=== PATIENT | female | born 1955 | race Two or more races ===

== ENCOUNTER 2020-02-22 07:50 | Outpatient (CLI) | payer OTHER | END 2020-02-22 07:56 | disposition home or self-care (01) | LOC: RX STUDY 07:50 | PROVIDERS: ATTEND Otolaryngology Otolaryngology/Facial Plastic Surgery | DX: J32.0 Chronic maxillary sinusitis (principal); R13.19 Other dysphagia ==

== ENCOUNTER → 2022-04-29 13:08 | Outpatient (CLI) | payer OTHER | END | disposition home or self-care (01) | LOC: LAB 13:08 | PROVIDERS: ATTEND Radiology Diagnostic Radiology | DX: R09.01 Asphyxia (principal) ==

== ENCOUNTER 2022-05-02 07:44 | Outpatient (CLI) | payer OTHER | END 2022-05-02 08:15 | disposition home or self-care (01) | LOC: TOM 07:44 | PROVIDERS: ATTEND Specialist | DX: R09.02 Hypoxemia (principal); J44.9 Chronic obstructive pulmonary disease, unspecified; A31.9 Mycobacterial infection, unspecified | CPT/HCPCS: 71275; Q9965 ==

== ENCOUNTER 2022-11-03 10:18 | Outpatient (CLI) | payer OTHER | END 2022-11-03 16:21 | disposition home or self-care (01) | LOC: MAMO-SONO 10:18 | PROVIDERS: ATTEND Internal Medicine Hematology & Oncology | DX: Z12.31 Encounter for screening mammogram for malignant neoplasm of breast (principal); N63.0 Unspecified lump in unspecified breast; N64.4 Mastodynia ==

== ENCOUNTER 2022-12-04 08:36 | Outpatient (CLI) | payer OTHER | END 2022-12-04 08:55 | disposition home or self-care (01) | LOC: RX STUDY 08:36 | DX: K92.2 Gastrointestinal hemorrhage, unspecified (principal) ==

== ENCOUNTER 2023-11-25 13:40 | Outpatient (CLI) | payer OTHER | END 2023-11-25 13:51 | disposition home or self-care (01) | LOC: MAMO-SONO 13:40 | PROVIDERS: ATTEND Obstetrics & Gynecology | DX: N20.0 Calculus of kidney (principal); N60.11 Diffuse cystic mastopathy of right breast; Z12.31 Encounter for screening mammogram for malignant neoplasm of breast ==

== ENCOUNTER 2023-11-30 12:10 | Outpatient (CLI) | payer OTHER | END 2023-11-30 12:24 | disposition home or self-care (01) | LOC: SONOGRAMA 12:10 | PROVIDERS: ATTEND Internal Medicine | DX: N95.0 Postmenopausal bleeding (principal) ==

== ENCOUNTER → 2024-08-30 | Outpatient (CLI) | payer OTHER | END | disposition home or self-care (01) | LOC: SONOGRAMA 13:30 | PROVIDERS: ATTEND Internal Medicine | DX: N20.0 Calculus of kidney (principal) ==

== ENCOUNTER 2024-09-05 11:11 | Emergency (ER) | payer OTHER ==
[~2024-09-05] VITALS: Ht 162.6 cm; Wt 56.7 kg
[2024-09-05] MEDS ORDERED: LISINOPRIL20 MG (11:59)
[2024-09-05] MEDS ORDERED: ATORVASTATIN CA40 MG (11:59)
[2024-09-05] MEDS ORDERED: GLIPIZIDE10 MG (11:59)
[2024-09-05] MEDS ORDERED: CEFTRIAXONE SODIUM 1,000 MG VIAL IM STA (13:06)
[2024-09-05] MEDS ORDERED: CEFTRIAXONE SODIUM 1,000 MG VIAL ONE (14:00)
[2024-09-05] MEDS ORDERED: LIDOCAINE HCL 1% 10ML VIAL ONE (14:01)
== END 2024-09-05 15:04 | disposition home or self-care (01) ==
LOC: ER 11:11
DX: J06.9 Acute upper respiratory infection, unspecified (principal)
CPT/HCPCS: 96372; 99282; J0696

== ENCOUNTER 2024-12-02 10:55 | Outpatient (CLI) | payer OTHER ==
[~2024-12-02 10:55] MED LIST: ATORVASTATIN CA40 MG; GLIPIZIDE10 MG; LISINOPRIL20 MG
== END 2024-12-02 10:57 | disposition home or self-care (01) ==
LOC: NUCLEAR 10:55
PROVIDERS: ATTEND Internal Medicine
DX: I87.2 Venous insufficiency (chronic) (peripheral) (principal)